=== PATIENT | female | born 1995 | race Caucasian/White ===

== ENCOUNTER 2018-06-11 01:07 | Emergency (ER) | payer OTHER ==
[~2018-06-11] VITALS: Ht 170.2 cm; Wt 68.2 kg
[2018-06-11 01:10] VITALS: Ht 170.2 cm; Wt 68.2 kg
[2018-06-11] MEDS ORDERED: BIRTH CONTROL (01:11)
[2018-06-11] MEDS ORDERED: NAPROSYN500 MG PO (01:32)
[2018-06-11 02:00] VITALS: BP 134/65
== END 2018-06-11 02:00 | disposition home or self-care (01) ==
LOC: D.ER 01:07
DX: M54.5 Low back pain (principal)